=== PATIENT | male | born 1930 | race Caucasian/White ===

== ENCOUNTER → 2018-06-11 | Outpatient (CLI) | payer MEDICARE | END | disposition home or self-care (01) | LOC: ROC 06-04 15:11 | PROVIDERS: ATTEND Radiology Radiation Oncology | DX: C15.4 Malignant neoplasm of middle third of esophagus (principal) | CPT/HCPCS: 99214; G0463 ==

== ENCOUNTER → 2018-06-13 | Outpatient (CLI) | payer MEDICARE ==
[~2018-06-13] MED LIST: ASPI-496 PO; CHOL100012 PO; DOXA4TAB3 PO; ESOM40CA PO; EZET10TA18 PO; FERR324T5 PO; FURO-93 PO; LISI-167 PO; MULT-717 PO; ONDA4TAB7 SL; SPIR25TA5 PO
== END | disposition home or self-care (01) ==
LOC: STAR 10:08
PROVIDERS: ATTEND Internal Medicine
DX: Z01.818 Encounter for other preprocedural examination (principal); C15.9 Malignant neoplasm of esophagus, unspecified; I45.10 Unspecified right bundle-branch block; I25.2 Old myocardial infarction
CPT/HCPCS: 93005

== ENCOUNTER 2018-06-17 07:38 | Day surgery (SDC) | payer MEDICARE ==
[2018-06-13 12:40] VITALS: BP 134/78
[~2018-06-17] VITALS: Ht 170.2 cm; Wt 77.4 kg
[~2018-06-17 07:38] MED LIST changes: -FURO-93 PO
[2018-06-17] MEDS ORDERED: LACTATED RINGERS 1,000 ML IV SCH (08:15)
[2018-06-17] MEDS ORDERED: FURO-93 PO (08:18)
[2018-06-17 08:19] VITALS: BP 134/78
[2018-06-17] MEDS ORDERED: PHENYLEPHRINE 10 MG/ML ONE (16:00)
== END 2018-06-17 11:50 | disposition home or self-care (01) ==
LOC: OUT 07:38
PROVIDERS: ATTEND Internal Medicine
DX: K31.89 Other diseases of stomach and duodenum (principal); C15.9 Malignant neoplasm of esophagus, unspecified; I10 Essential (primary) hypertension; K21.9 Gastro-esophageal reflux disease without esophagitis; I50.9 Heart failure, unspecified; Z87.39 Personal history of other diseases of the musculoskeletal system and connective tissue; Z98.42 Cataract extraction status, left eye; Z98.41 Cataract extraction status, right eye; Z87.440 Personal history of urinary (tract) infections; Z98.890 Other specified postprocedural states; Z72.89 Other problems related to lifestyle
CPT/HCPCS: 43237; J2370; J7120

== ENCOUNTER → 2018-08-20 | Outpatient (CLI) | payer MEDICARE ==
[~2018-08-20] MED LIST changes: +FURO-93 PO
== END | disposition home or self-care (01) ==
LOC: EDSTATUS 07-22 16:29 → ROC 08:46
PROVIDERS: ATTEND Radiology Radiation Oncology
DX: C15.4 Malignant neoplasm of middle third of esophagus (principal)
CPT/HCPCS: 99213; G0463

== ENCOUNTER 2018-09-30 07:39 | Day surgery (SDC) | payer MEDICARE ==
[~2018-09-30] VITALS: Ht 167.6 cm; Wt 70.4 kg
[2018-09-30] MEDS ORDERED: LACTATED RINGERS 1,000 ML IV SCH (08:24)
[2018-09-30 08:27] VITALS: BP 154/89
[2018-09-30] MEDS ORDERED: PROPOFOL 10 MG/ML, 20ML ONE ×2 (09:33→10:11)
[2018-09-30] MEDS ORDERED: LIDOCAINE-MPF 2% ,5ML ONE (10:11)
== END 2018-09-30 11:55 | disposition home or self-care (01) ==
LOC: OUT 07:39
PROVIDERS: ATTEND Internal Medicine
DX: K21.9 Gastro-esophageal reflux disease without esophagitis (principal); K31.89 Other diseases of stomach and duodenum; I10 Essential (primary) hypertension; Z88.1 Allergy status to other antibiotic agents; Z85.01 Personal history of malignant neoplasm of esophagus; Z88.8 Allergy status to other drugs, medicaments and biological substances; Z88.0 Allergy status to penicillin
CPT/HCPCS: 43242; 88305; J2704; J3490

== ENCOUNTER → 2018-10-08 | Outpatient (CLI) | payer MEDICARE | END | disposition home or self-care (01) | LOC: EDSTATUS 08-03 14:47 → ROC 11:17 | PROVIDERS: ATTEND Radiology Radiation Oncology | DX: C15.4 Malignant neoplasm of middle third of esophagus (principal) | CPT/HCPCS: 99213; G0463 ==

== ENCOUNTER 2019-04-10 10:09 | Outpatient (CLI) | payer MEDICARE | END 2019-04-10 23:59 | disposition home or self-care (01) | LOC: ROC 10:09 | PROVIDERS: ATTEND Radiology Radiation Oncology | DX: C15.4 Malignant neoplasm of middle third of esophagus (principal); M19.90 Unspecified osteoarthritis, unspecified site; M62.81 Muscle weakness (generalized); K59.00 Constipation, unspecified | CPT/HCPCS: 99213; G0463 ==

== ENCOUNTER 2019-09-18 14:26 | Outpatient (CLI) | payer MEDICARE ==
[~2019-09-18 14:26] MED LIST changes: -EZET10TA18 PO; +EZET10TA70 PO
[2019-09-18] MEDS ORDERED: CETI10TA18 PO (15:11)
[2019-09-18] MEDS ORDERED: MULT-297 PO (15:11)
[2019-09-18 15:35] LABS: ALANINE AMINOTRANSFERASE 20 U/L (12-78); ALBUMIN 3.7 g/dL (3.4-5.0); ANION GAP 5 mmol/L (5-15); CALCIUM 9.6 mg/dL (8.5-10.1); CHLORIDE 106 mmol/L (98-107); CREATININE 0.83 mg/dL (0.7-1.3)
[2019-09-18 15:37] LABS: ALKALINE PHOSPHATASE 84 U/L (45-117); BILIRUBIN,TOTAL 0.9 mg/dL (0.2-1.0); TOTAL PROTEIN 7.9 g/dL (6.4-8.2)
== END 2019-09-18 23:59 | disposition home or self-care (01) ==
LOC: STAR 14:26
PROVIDERS: ATTEND Internal Medicine
DX: Z01.818 Encounter for other preprocedural examination (principal); C15.9 Malignant neoplasm of esophagus, unspecified; I45.2 Bifascicular block
CPT/HCPCS: 36415; 80053; 93005

== ENCOUNTER 2019-09-29 08:21 | Day surgery (SDC) | payer MEDICARE ==
[~2019-09-29] VITALS: Ht 167.6 cm; Wt 81.0 kg
[~2019-09-29 08:21] MED LIST changes: +CETI10TA18 PO; +MULT-297 PO
[2019-09-29] MEDS ORDERED: LACTATED RINGERS 1,000 ML IV SCH (08:35)
[2019-09-29 08:50] VITALS: BP 146/78
[2019-09-29] MEDS ORDERED: OXYcodone 5 MG/5 ML ORAL.SOL UDC PO PRN (11:30)
[2019-09-29] MEDS ORDERED: ONDANSETRON 2MG/ML, 2ML IV PRN (11:30)
[2019-09-29] MEDS ORDERED: FENTANYL PF 100 MCG/2ML IV PRN (11:30)
[2019-09-29] MEDS ORDERED: MORPHINE SULFATE 4 MG/ML, 1ML IVPush PRN (11:30)
[2019-09-29] MEDS ORDERED: DIPHENHYDRAMINE 50 MG/ML, 1ML IVPush PRN (11:30)
[2019-09-29] MEDS ORDERED: PROMETHAZINE 25 MG/ML, 1ML IV PRN (11:30)
[2019-09-29] MEDS ORDERED: METOPROLOL 1 MG/ML, 5ML IV PRN (11:30)
[2019-09-29] MEDS ORDERED: DIAZEPAM 5 MG/ML, 2ML IVPush PRN (11:30)
[2019-09-29] MEDS ORDERED: hydrALAzine 20 MG/ML, 1ML IV PRN (11:30)
[2019-09-29] MEDS ORDERED: EPHEDRINE 50 MG/ML, 1ML IVPush PRN (11:30)
[2019-09-29] MEDS ORDERED: EPHEDRINE 50 MG/ML, 1ML IM PRN (11:30)
[2019-09-29] MEDS ORDERED: ONDANSETRON ODT 8 MG PO PRN (11:30)
[2019-09-29] MEDS ORDERED: PROPOFOL 50 ML ONE (12:02)
== END 2019-09-29 13:35 | disposition home or self-care (01) ==
LOC: OUT 08:21
PROVIDERS: ATTEND Internal Medicine
DX: C15.9 Malignant neoplasm of esophagus, unspecified (principal); I10 Essential (primary) hypertension; Z88.1 Allergy status to other antibiotic agents; Z88.0 Allergy status to penicillin
CPT/HCPCS: 43237; 43239; 88305; J2704; J7120

== ENCOUNTER 2019-10-16 07:58 | Outpatient (CLI) | payer MEDICARE | END 2019-10-16 23:59 | disposition home or self-care (01) | LOC: ROC 07:58 | PROVIDERS: ATTEND Radiology Radiation Oncology | DX: C15.4 Malignant neoplasm of middle third of esophagus (principal) | CPT/HCPCS: 99212; G0463 ==

== ENCOUNTER → 2020-04-28 | Outpatient (CLI) | payer MEDICARE | END | disposition home or self-care (01) | LOC: ROC 09:01 | PROVIDERS: ATTEND Radiology Radiation Oncology | DX: C15.4 Malignant neoplasm of middle third of esophagus (principal) | CPT/HCPCS: 99212; G0463 ==

== ENCOUNTER → 2021-01-25 | Outpatient (CLI) | payer MEDICARE ==
[~2021-01-25] MED LIST changes: +CETI-158 PO-COUM; +CHOL5POW PO
[2021-01-25 15:46] LABS: ALANINE AMINOTRANSFERASE 26 U/L (12-78); ALBUMIN 3.7 g/dL (3.4-5.0); ANION GAP 7 mmol/L (5-15); CALCIUM 9.3 mg/dL (8.5-10.1); CHLORIDE 104 mmol/L (98-107)
[2021-01-25 15:48] LABS: ALKALINE PHOSPHATASE 78 U/L (45-117); BILIRUBIN,TOTAL 0.6 mg/dL (0.2-1.0); TOTAL PROTEIN 7.7 g/dL (6.4-8.2)
== END | disposition home or self-care (01) ==
LOC: STAR 13:29
PROVIDERS: ATTEND Internal Medicine
DX: Z01.818 Encounter for other preprocedural examination (principal); I49.1 Atrial premature depolarization; I45.2 Bifascicular block; Z85.01 Personal history of malignant neoplasm of esophagus; Z20.822 Contact with and (suspected) exposure to COVID-19
CPT/HCPCS: 36415; 80053; 93005; U0003; U0005

== ENCOUNTER 2021-01-31 10:33 | Day surgery (SDC) | payer MEDICARE ==
[~2021-01-31] VITALS: Ht 170.2 cm; Wt 84.9 kg
[2021-01-31] MEDS ORDERED: LACTATED RINGERS 1,000 ML IV SCH (11:30)
[2021-01-31] MEDS ORDERED: CHLORHEXIDINE 15 ML UDC PO ONE (11:30)
[2021-01-31 11:39] VITALS: BP 171/80
[2021-01-31] MEDS ORDERED: CHLORHEXIDINE 15 ML UDC ONE (11:44)
[2021-01-31] MEDS ORDERED: PROPOFOL 10 MG/ML, 50ML ONE (12:04)
[2021-01-31] MEDS ORDERED: METOPROLOL 1 MG/ML, 5ML IV PRN (13:30)
[2021-01-31] MEDS ORDERED: OXYcodone 5 MG/5 ML ORAL.SOL UDC PO PRN (13:30)
[2021-01-31] MEDS ORDERED: DIPHENHYDRAMINE 50 MG/ML, 1ML IVPush PRN (13:30)
[2021-01-31] MEDS ORDERED: ACETAMINOPHEN 325 MG TABLET PO PRN (13:30)
[2021-01-31] MEDS ORDERED: hydrALAzine 20 MG/ML, 1ML IV PRN (13:30)
[2021-01-31] MEDS ORDERED: ONDANSETRON 2MG/ML, 2ML IVPush PRN (13:30)
[2021-01-31] MEDS ORDERED: LABETALOL 5MG/ML, 20ML IV PRN (13:30)
[2021-01-31] MEDS ORDERED: FENTANYL PF 100 MCG/2ML IV PRN (13:30)
[2021-01-31] MEDS ORDERED: EPHEDRINE 50 MG/ML, 1ML IVPush PRN (13:30)
[2021-01-31] MEDS ORDERED: METOCLOPRAMIDE 5 MG/ML, 2ML IVPush PRN (13:30)
[2021-01-31] MEDS ORDERED: HALOPERIDOL 5 MG/ML IV PRN (13:30)
== END 2021-01-31 16:00 | disposition home or self-care (01) ==
LOC: OUT 10:33
PROVIDERS: ATTEND Internal Medicine
DX: K22.70 Barrett's esophagus without dysplasia (principal); K20.90 Esophagitis, unspecified without bleeding; K29.50 Unspecified chronic gastritis without bleeding; K44.9 Diaphragmatic hernia without obstruction or gangrene; K21.9 Gastro-esophageal reflux disease without esophagitis; K86.2 Cyst of pancreas; I11.0 Hypertensive heart disease with heart failure; I50.30 Unspecified diastolic (congestive) heart failure; I25.10 Atherosclerotic heart disease of native coronary artery without angina pectoris; I25.2 Old myocardial infarction; Z79.899 Other long term (current) drug therapy; Z85.01 Personal history of malignant neoplasm of esophagus; Z88.0 Allergy status to penicillin; Z88.2 Allergy status to sulfonamides; Z88.8 Allergy status to other drugs, medicaments and biological substances
CPT/HCPCS: 43236; 43239; 43251; 43259; 88305; A4648; J2704; J7120

== ENCOUNTER 2021-02-23 08:12 | Outpatient (CLI) | payer MEDICARE | END 2021-02-23 23:59 | disposition home or self-care (01) | LOC: ROC 08:12 | PROVIDERS: ATTEND Radiology Radiation Oncology | DX: Z08 Encounter for follow-up examination after completed treatment for malignant neoplasm (principal); I11.0 Hypertensive heart disease with heart failure; I50.30 Unspecified diastolic (congestive) heart failure; I25.10 Atherosclerotic heart disease of native coronary artery without angina pectoris; I25.2 Old myocardial infarction; K21.9 Gastro-esophageal reflux disease without esophagitis; Z85.01 Personal history of malignant neoplasm of esophagus; Z79.899 Other long term (current) drug therapy | CPT/HCPCS: G0463 ==